=== PATIENT | male | born 1980 | race Hispanic/Latino ===

== ENCOUNTER 2018-12-27 11:30 | Emergency (ER) | payer OTHER ==
--- NOTE | 2018-12-27 11:43 | C.PDOC ---
History Of Present Illness 38 year old male with PMHx of lumbar dissectomy (4 years ago after serving in [place]) presents to the ED complaining of back pain ongoing for one week but worse since yesterday status post slipping on water at home and falling on his back. Describes pain as throbbing to the left paraspinal region. Denies head impact, loss of bowel function, or loss of sensation to lower extremities. Reports he took Motrin at 0800 this morning without improvement, which prompted ED visit. He denies any other pain in his body, no chest pain, abdominal pain, urinary issues or any other complaints. Time Seen by Provider: 12/27/18 11:42 Chief Complaint (Nursing): Back Pain History Per: Patient History/Exam Limitations: no limitations Onset/Duration Of Symptoms: Days Current Symptoms Are (Timing): Still Present Quality Of Discomfort: Other (throbbing ) Associated Symptoms: None Past Medical History Reviewed: Historical Data, Nursing Documentation, Vital Signs - Medical History PMH: Back Problems (4yrs ago injury in [place]. Dissectomy L4-L5) Family History: States: Unknown Family Hx - Social History Hx Tobacco Use: No Hx Alcohol Use: No Hx Substance Use: No - Immunization History Hx Tetanus Toxoid Vaccination: No Hx Influenza Vaccination: No Hx Pneumococcal Vaccination: No Review Of Systems Constitutional: Negative for: Fever, Chills, Weakness, Malaise Eyes: Negative for: Pain, Vision Change, Conjunctivae Inflammation, Eyelid Inflammation, Redness ENT: Negative for: Ear Pain, Ear Discharge, Nose Congestion, Mouth Pain Cardiovascular: Negative for: Chest Pain, Palpitations, Orthopnea Respiratory: Negative for: Cough, Shortness of Breath, Hemoptysis, SOB with Excertion, Pleuritic Pain, Sputum Gastrointestinal: Negative for: Nausea, Vomiting, Abdominal Pain, Diarrhea, Constipation, Hematochezia Genitourinary: Negative for: Dysuria, Frequency, Hematuria Musculoskeletal: Positive for: Back Pain. Negative for: Neck Pain, Shoulder Pain, Arm Pain, Hand Pain, Leg Pain, Foot Pain Skin: Negative for: Rash Neurological: Negative for: Weakness, Numbness Physical Exam - Physical Exam Appears: Well, Non-toxic, No Acute Distress Skin: Warm, Dry, Other (Scar site is clean, nonerythematous, noncrepitus ) Head: Atraumatic, Normacephalic, No Tenderness, No Swelling, No Abrasion, No Laceration Eye(s): bilateral: Normal Inspection, PERRL, EOMI Ear(s): Bilateral: Normal Nose: Normal, No Flaring, No Discharge, No Epistaxis, No Deformity, No Tenderness, No Septal Hematoma Oral Mucosa: Moist Tongue: Normal Appearing, No Swelling, No Lesions Lips: Normal Appearing, No Swelling, No Contusion Throat: Normal, No Erythema, No Exudate, No Drooling, No Mass Neck: Normal ROM, Trachea Midline, No Midline Cervical Tenderness, Supple, Other (no meningeal signs) Chest: Symmetrical Cardiovascular: Rhythm Regular Respiratory: No Rales, No Rhonchi, No Wheezing Back: No CVA Tenderness, Other (tendereness to L3-L4 on left paraspinal, no midline tenderness ) Extremity: Bilateral: Atraumatic, Normal Color And Temperature, Normal ROM DTR: Ankle (R): 0, Ankle (L): 0 Neurological/Psych: Oriented x3, Normal Speech, Normal Motor, Normal Sensation Gait: Steady ED Course And Treatment O2 Sat by Pulse Oximetry: 96 (RA) Pulse Ox Interpretation: Normal Medical Decision Making Medical Decision Making: Plan - Flexeril 5mg PO - Toradol 15mg IM - XR LS spine 1412 xray unremarkable on my read pain imrpoved no cauda equina clear for d/c home Disposition - Disposition Referrals: Beatris Dobson MD [Staff Provider] - [facility] [Outside] [facility] [Outside] [facility] [Outside] Disposition: HOME/ ROUTINE Disposition Time: 14:13 Condition: GOOD Additional Instructions: DONET HAIRSTON JR, thank you for letting us take care of you today. Your provider was Mino Mendoza and you were treated for LOWER BACK PAIN. The emergency medical care you received today was directed at your acute symptoms. If you were prescribed any medication, please fill it and take as directed. It may take several days for your symptoms to resolve. Return to the Emergency Department if your symptoms worsen, do not improve, or if you have any other problems. Please contact your doctor or call one of the physicians/clinics you have been referred to that are listed on the Patient Visit Information form that is included in your discharge packet. Bring any paperwork you were given at [facility] with you along with any medications you are taking to your follow up visit. Our treatment cannot replace ongoing medical care by a primary care provider outside of the emergency department. Thank you for allowing the [facility] team to be part of your care today. If you had an X-Ray or CT scan: A Radiologist will review the ED reading if any change in treatment is needed we will contact you. If you had a blood, urine, or wound culture: It will take several days for the results, if any change in treatment is needed we will contact you. If you had an STI test: It will take 48 hours for the results. Please call after 1 week if you have not heard back. Prescriptions: Cyclobenzaprine HCl 5 mg PO Q12H PRN 5 Days #10 tablet PRN Reason: Pain, Moderate (4-7) Instructions: Low Back Pain in Adults, Low Back Pain (DC) Forms: [employer] (German) - Clinical Impression Clinical Impression: Low back strain - Scribe Statement The provider has reviewed the documentation as recorded by the Quinnibnicole Obrien All medical record entries made by the Quinnibnicole were at my direction and personally dictated by me. I have reviewed the chart and agree that the record accurately reflects my personal performance of the history, physical exam, medical decision making, and the department course for this patient. I have also personally directed, reviewed, and agree with the discharge instructions and disposition.
[2018-12-27 11:51] VITALS: RESP 22; O2SAT 96
[2018-12-27 14:23] VITALS: BP 121/68; PULSE 88; TEMP 98
--- NOTE | 2018-12-27 15:45 | RAD ---
Lumbar spine three views History: Prior surgery. Injury. COMPARISON: None available. FINDINGS: Minimal retrolisthesis of L4 on L5. Narrowing of the L4-5 disc space. Vertebral body heights are otherwise preserved. 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 IMPRESSION: Minimal retrolisthesis of L4 on L5. Narrowing of the L4-5 disc space. 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 If pain persists, consider correlation with MRI.
== END 2018-12-27 14:22 | disposition home or self-care (01) ==
LOC: C.ER 11:30
DX: S39.012A Strain of muscle, fascia and tendon of lower back, initial encounter (principal); W01.0XXA Fall on same level from slipping, tripping and stumbling without subsequent striking against object, initial encounter; Y92.009 Unspecified place in unspecified non-institutional (private) residence as the place of occurrence of the external cause
CPT/HCPCS: 72100; 96372; 99284; J1885